=== PATIENT | male | born 1965 | race Caucasian/White ===

== ENCOUNTER 2017-02-14 13:15 | Observation (INO) | payer BC ==
--- NOTE | 2017-02-14 13:51 | RADIOLOGY REPORT (SQ) ---
EXAM DESCRIPTION: CHEST PA/LAT COMPLETED DATE/TIME: 02/14/2017 1:40 pm REASON FOR STUDY: rule out pneumonia COMPARISON: None. EXAM PARAMETERS: NUMBER OF VIEWS: two views TECHNIQUE: Digital Frontal and Lateral radiographic views of the chest acquired. RADIATION DOSE: NA LIMITATIONS: none FINDINGS: LUNGS AND PLEURA: Patchy opacification is present in the upper and lower lung mcintosh on th e right. The left lung is clear. There is no pleural effusion. MEDIASTINUM AND HILAR STRUCTURES: No masses or contour abnormalities. HEART AND VASCULAR STRUCTURES: Heart normal size. No evidence for failure. BONES: No acute findings. HARDWARE: None in the chest. OTHER: No other significant finding. IMPRESSION: Multicentric pneumonia is suggested on the right. No dense consolidation is present. TECHNICAL DOCUMENTATION: JOB ID: [id number] [employer]- All Rights Reserved
--- NOTE | 2017-02-14 14:01 | ER Document Report ---
ED Respiratory Problem - General Chief Complaint: Shortness Of Breath Stated Complaint: DIFFICULTY BREATHING Time Seen by Provider: 02/14/17 13:56 Notes: Patient is here because he is having difficulty breathing and congestion. He began to get ill Tuesday primarily with a cough productive of green colored sputum. Denies any blood production. He tried treating himself with over-the- counter medications over the weekend without success. He went to [facility] this morning where his oxygen level was noted to be 89-90% on room air. They gave the patient 125 mg of Solu-Medrol IM, Rocephin 1 g IM, and Tylenol because he was febrile and called EMS to transport him here. Patient says he has a history of asthma, having been diagnosed about 7 months ago. He has an albuterol inhaler to use as needed. He has never been told he has COPD. Was a smoker but stopped some years ago. No history of heart disease. TRAVEL OUTSIDE OF THE [place] IN LAST 30 DAYS: No - Related Data Allergies/Adverse Reactions: No Known Allergies Allergy (Unverified 08/16/14 10:46) Past Medical History - Social History Smoking Status: Former Smoker Cigarette use (# per day): No Family History: Reviewed & Not Pertinent - Past Medical History Cardiac Medical History: Denies: Hx Coronary Artery Disease, Hx Heart Attack, Hx Hypertension Pulmonary Medical History: Reports: Hx Asthma Denies: Hx Bronchitis, Hx COPD, Hx Pneumonia Endocrine Medical History: Denies: Hx Diabetes Mellitus Type 1, Hx Diabetes Mellitus Type 2 Musculoskeltal Medical History: Reports Hx Arthritis, Reports Hx Gout - Immunizations Hx Diphtheria, Pertussis, Tetanus Vaccination: Yes Review of Systems - Review of Systems Notes: REVIEW OF SYSTEMS: CONSTITUTIONAL : Denies fever. EENT: Denies eye, ear, nose or mouth or throat pain or other symptoms. CARDIOVASCULAR: Denies chest pain. RESPIRATORY: See HPI. GASTROINTESTINAL: Denies abdominal pain or nausea, vomiting, or diarrhea. GENITOURINARY: Denies difficulty or painful urinating, urinary frequency, blood in urine. MUSCULOSKELETAL: Denies back or neck pain. Denies joint pain or swelling. SKIN: Denies rash or skin lesions. NEUROLOGICAL: Denies LOC or altered mental status. Denies headache. Denies sensory loss or motor deficits. ALL OTHER SYSTEMS REVIEWED AND NEGATIVE. Physical Exam - Vital signs Vitals: Pulse Ox 93 02/14/17 13:23 Interpretation: Hypoxic - O2 sat 93% on 3 L, drops below 90% on room air - Notes Notes: PHYSICAL EXAMINATION: GENERAL: Well-appearing, in no acute distress. On O2 at 3 L by nasal cannula. O2 sat 97% HEAD: Atraumatic, normocephalic. EYES: Pupils equal round and reactive to light, extraocular movements intact. ENT: oropharynx clear without exudates. Moist mucous membranes. NECK: Normal range of motion, supple. LUNGS: Decreased breath sounds bilaterally. A few fine expiratory wheezes are heard. HEART: Regular rate and rhythm without murmurs. ABDOMEN: Soft, nontender. No guarding or rebound. BACK: No tenderness throughout entire back. EXTREMITIES: Normal range of motion without pain. No edema. Negative Homans bilaterally. NEUROLOGICAL: Normal speech, normal gait. Normal sensory, motor, and reflex exams. Awake, alert, and oriented x3. Cranial nerves normal. SKIN: Warm, dry, no rashes. Course - Re-evaluation Re-evalutation: 02/14/17 14:35 Discussed case with hospitalist who will admit the patient. - Vital Signs Vital signs: Temp Pulse Resp BP Pulse Ox 16 138/91 H 92 02/14/17 13:31 02/14/17 13:31 02/14/17 13:31 02/14/17 14:04 - Laboratory Result Diagrams: 02/14/17 13:50 02/14/17 13:50 - Diagnostic Test Radiology results interpreted by me: 02/14/17 14:34 Chest x-ray shows pneumonia in the right middle and right lower lung. - EKG Interpretation by Ny EKG shows normal: Sinus rhythm Rate: Normal Rhythm: NSR Additional EKG results interpreted by hi: 02/14/17 14:37 EKG without any acute changes. Discharge - Discharge Clinical Impression: Pneumonia Qualifiers: Pneumonia type: due to unspecified organism Laterality: right Lung location: lower lobe of lung Qualified Code(s): J18.1 - Lobar pneumonia, unspecified organism Admitting Provider: Hospitalist Unit Admitted: Medical Floor
[2017-02-14 14:08] LABS: VENOUS BLOOD BASE EXCESS 1.4 mmol/L; VENOUS BLOOD HCO3 27.4 mmol/L (20-32); VENOUS BLOOD PCO2 47.8 mmHg (35-63); VENOUS BLOOD PH 7.38 (7.30-7.42)
[2017-02-14 14:11] LABS: HEMATOCRIT 46.6 % (37.9-51.0); HEMOGLOBIN 16.1 g/dL (13.5-17.0); HGB HCT DIFFERENCE 1.7; MEAN CORPUSCULAR HEMOGLOBIN 32.2 pg (27.0-33.4); MEAN CORPUSCULAR HGB CONC 34.6 g/dL (32.0-36.0); MEAN CORPUSCULAR VOLUME 93 fl (80-97); RED BLOOD COUNT 5.01 10^6/uL (4.35-5.55); RED CELL DISTRIBUTION WIDTH 14.1 % (11.5-14.0); WHITE BLOOD COUNT 7.8 10^3/uL (4.0-10.5)
[2017-02-14] MEDS ORDERED: CEFTRIAXONE 1 GM/D5W RTU 50 ML IV ONE (14:11)
[2017-02-14 14:16] LABS: PROTHROMBIN TIME 13.5 SEC (11.4-15.4)
[2017-02-14 14:43] LABS: BAND NEUTROPHILS % (MANUAL) 6 % (3-5); BASOPHILS % (MANUAL) 0 % (0-2); EOSINOPHILS % (MANUAL) 0 % (0-6); LYMPHOCYTES % (MANUAL) 10 % (13-45); RBC MORPHOLOGY COMMENT NORMO-CYTIC/CHROMIC; TOTAL CELLS COUNTED 100
[2017-02-14] MEDS ORDERED: ACETAMINOPHEN 325 MG TABLET PO PRN (15:00)
[2017-02-14] MEDS ORDERED: ONDANSETRON 4 MG TAB.RAPDIS PO PRN (15:00)
[2017-02-14] MEDS ORDERED: ONDANSETRON HCL INJ/PF 4 MG/2 ML SDV IV PRN (15:00)
[2017-02-14 15:03] LABS: ANION GAP 12 (5-19); CARBON DIOXIDE 28 mmol/L (22-30); CHLORIDE 97 mmol/L (98-107); GLUCOSE 152 mg/dL (75-110); POTASSIUM 4.4 mmol/L (3.6-5.0); SODIUM 137.4 mmol/L (137-145); TOTAL PROTEIN 7.2 g/dL (6.3-8.2)
[2017-02-14 15:04] LABS: ALANINE AMINOTRANSFERASE 63 U/L (21-72); ALKALINE PHOSPHATASE 93 U/L (38-126); ASPARTATE AMINO TRANSFERASE 45 U/L (17-59); BILIRUBIN,DIRECT 0.4 mg/dL (0.0-0.4); BLOOD UREA NITROGEN 13 mg/dL (7-20); CALCIUM 8.9 mg/dL (8.4-10.2); CREATININE RESULT 1.02 mg/dL (0.52-1.25)
[2017-02-14 15:18] LABS: APPEARANCE,URINE CLEAR; BILIRUBIN,URINE NEGATIVE (NEGATIVE); GLUCOSE, URINE NEGATIVE (NEGATIVE); KETONES,URINE NEGATIVE (NEGATIVE); LEUKOCYTE ESTERASE,URINE TRACE (NEGATIVE); NITRITE,URINE NEGATIVE (NEGATIVE); PROTEIN,URINE NEGATIVE (NEGATIVE); URINE SPECIFIC GRAVITY 1.016; UROBILINOGEN,URINE NEGATIVE mg/dL (<2.0)
--- NOTE | 2017-02-14 15:26 | PDOC H&P ---
History of Present Illness Admission Date/PCP: 02/14/17 14:48 Patient complains of: Cough and shortness of breath History of Present Illness: KEVAN DOMINGO is a 52 year old male who presents with a 3 day history of productive cough along with fevers to 100.4. Patient reports that he has had worsening shortness of breath also. He denies any chest pain. He was seen in his primary care doctor today and sent to the emergency room because he was noted to have an oxygen level of 90% on room air. The patient denies any recent travel. He denies any prolonged sitting. Patient denies having any orthopnea or PND. He reports that his shortness of breath has been mild. He denies any travel outside of [facility]. He can walk his usual distance but becomes winded more easily. Past Medical History Cardiac Medical History: Denies: Coronary Artery Disease, Myocardial Infarction, Hypertension Pulmonary Medical History: Reports: Asthma Denies: Bronchitis, Chronic Obstructive Pulmonary Disease (COPD), Pneumonia EENT Medical History: Reports: None Neurological Medical History: Denies: Seizures Endocrine Medical History: Denies: Diabetes Mellitus Type 1, Diabetes Mellitus Type 2 Renal/ Medical History: Reports: None Malignancy Medical History: Reports: None Musculoskeltal Medical History: Reports: Arthritis, Gout Skin Medical History: Reports: None Psychiatric Medical History: Reports: None Hematology: Reports: None Denies: Anemia Infectious Medical History: Reports: None Past Surgical History Past Surgical History: Reports: Orthopedic Surgery - right knee, Other - Laser treatment of nephrolithiasis Social History Information Source: Patient Lives with: Family Smoking Status: Former Smoker Frequency of Alcohol Use: Occasional Hx Recreational Drug Use: No Drugs: None Hx Prescription Drug Abuse: No - Advance Directive Resuscitation Status: Full Code Family History Family History: Father is alive and 72 years old. He has COPD. Mother is alive and 73. She has a neuroendocrine cancer Parental Family History Reviewed: Yes Children Family History Reviewed: No Sibling(s) Family History Reviewed.: No Medication/Allergy Home Medications: Albuterol Sulfate [Proair HFA] 2 puff IH Q4 PRN 02/14/17 Allopurinol [Zyloprim 300 mg Tablet] 300 mg PO DAILY 02/14/17 Colchicine [Colcrys 0.6 mg Tablet] 0.6 mg PO DAILY 02/14/17 Naproxen [Naprosyn 250 mg Tablet] 250 mg PO DAILY PRN 02/14/17 Allergies/Adverse Reactions: No Known Allergies Allergy (Unverified 08/16/14 10:46) Review of Systems Constitutional: PRESENT: fever(s). ABSENT: chills, headache(s), weight gain, weight loss Eyes: ABSENT: visual disturbances Ears: ABSENT: hearing changes Cardiovascular: PRESENT: dyspnea on exertion. ABSENT: chest pain, edema, orthropnea, palpitations Respiratory: PRESENT: cough, dyspnea, sputum. ABSENT: hemoptysis Gastrointestinal: ABSENT: abdominal pain, constipation, diarrhea, hematemesis, hematochezia, nausea, vomiting Genitourinary: ABSENT: dysuria, hematuria Musculoskeletal: ABSENT: joint swelling Integumentary: ABSENT: rash, wounds Neurological: ABSENT: abnormal gait, abnormal speech, confusion, dizziness, focal weakness, syncope Psychiatric: ABSENT: anxiety, depression Endocrine: ABSENT: cold intolerance, heat intolerance, polydipsia, polyuria Hematologic/Lymphatic: ABSENT: easy bleeding, easy bruising Physical Exam Vital Signs: Temp Pulse Resp BP Pulse Ox 98.1 F 20 145/81 H 94 02/14/17 15:16 02/14/17 15:01 02/14/17 15:01 02/14/17 15:01 General appearance: PRESENT: no acute distress Head exam: PRESENT: atraumatic, normocephalic Eye exam: PRESENT: conjunctiva pink, EOMI, PERRLA. ABSENT: scleral icterus Ear exam: PRESENT: normal external ear exam Mouth exam: PRESENT: moist, tongue midline Neck exam: ABSENT: carotid bruit, JVD, lymphadenopathy, thyromegaly Respiratory exam: PRESENT: rhonchi - Coarse rhonchi bilaterally.. ABSENT: rales , wheezes Cardiovascular exam: PRESENT: RRR. ABSENT: diastolic murmur, rubs, systolic murmur Pulses: PRESENT: normal dorsalis pedis pul GI/Abdominal exam: PRESENT: normal bowel sounds, soft. ABSENT: distended, guarding, mass, organolmegaly, rebound, tenderness Rectal exam: PRESENT: deferred Extremities exam: ABSENT: calf tenderness, clubbing, pedal edema Neurological exam: PRESENT: alert, awake, oriented to person, oriented to place , oriented to time, oriented to situation, CN II-XII grossly intact. ABSENT: motor sensory deficit Psychiatric exam: PRESENT: appropriate affect Skin exam: PRESENT: dry, intact, warm. ABSENT: cyanosis, rash Results Laboratory Results: 02/14/17 15:01 Urine Color YELLOW Urine Appearance CLEAR Urine pH 5.0 Ur Specific [place] 1.016 Urine Protein NEGATIVE Urine Glucose (UA) NEGATIVE Urine Ketones NEGATIVE Urine Blood SMALL H Urine Nitrite NEGATIVE Ur Leukocyte Esterase TRACE H Urine WBC (Auto) 3 Urine RBC (Auto) 11 Impressions: Chest X-Ray 02/14/17 13:29 IMPRESSION: Multicentric pneumonia is suggested on the right. No dense consolidation is present. Assessment & Plan - Diagnosis (1) Pneumonia Qualifiers: Pneumonia type: due to unspecified organism Laterality: right Lung location: lower lobe of lung Qualified Code(s): J18.1 - Lobar pneumonia, unspecified organism Is this a current diagnosis for this admission?: YesPlan: The patient appears to have community-acquired pneumonia. He is quite hypoxic. We will give nebulizers, Rocephin and Zithromax. He does have history of asthma but does not have much wheezing. Will hold off on starting any steroids at this time. The patient will be made as an observation admission as I anticipate he will improve overnight and should be able to go home (2) Asthma Is this a current diagnosis for this admission?: YesPlan: Give albuterol nebs. Will hold off on giving steroids at this time. (3) Gout Is this a current diagnosis for this admission?: YesPlan: Continue with colchicine and allopurinol. - Time Time Spent: 50 to 70 Minutes - Inpatient Certification Medical Necessity: Need for IV Antibiotics
[2017-02-14] MEDS: IPRATROPIUM/ALBUTEROL 0.5-2.5 MG/3 ML AMPUL NEB SCH ×2 (16:09→21:31)
[2017-02-14] MEDS: NORMAL SALINE 1000 ML 1,000 ML IV PRN (17:41)
[2017-02-14] MEDS ORDERED: AZITHROMYCIN 500 MG in DEXTROSE 5%-WATER 250 ML IV SCH (18:00)
[2017-02-15] MEDS: IPRATROPIUM/ALBUTEROL 0.5-2.5 MG/3 ML AMPUL NEB SCH ×4 (00:28→11:36)
[2017-02-15] MEDS: NORMAL SALINE 1000 ML 1,000 ML IV PRN ×2 (02:45→11:26)
[2017-02-15 06:06] LABS: ABSOLUTE LYMPHOCYTES (AUTO) 0.7 10^3/uL (0.5-4.7); ABSOLUTE MONOCYTES (AUTO) 1.2 10^3/uL (0.1-1.4); ABSOLUTE NEUT (AUTO) 6.1 10^3/uL (1.7-8.2); BASOPHILS % (AUTO) 0.1 % (0-2); HEMATOCRIT 45.2 % (37.9-51.0); HEMOGLOBIN 15.4 g/dL (13.5-17.0); LYMPHOCYTES % (AUTO) 8.4 % (13-45); MEAN CORPUSCULAR HEMOGLOBIN 31.9 pg (27.0-33.4); MEAN CORPUSCULAR HGB CONC 34.1 g/dL (32.0-36.0); MEAN CORPUSCULAR VOLUME 94 fl (80-97); MONOCYTES % (AUTO) 15.3 % (3-13); RED BLOOD COUNT 4.83 10^6/uL (4.35-5.55); RED CELL DISTRIBUTION WIDTH 13.9 % (11.5-14.0); SEGMENTED NEUTROPHILS % (AUTO) 76.2 % (42-78)
[2017-02-15 06:25] LABS: ANION GAP 12 (5-19); BLOOD UREA NITROGEN 17 mg/dL (7-20); CALCIUM 9.3 mg/dL (8.4-10.2); CARBON DIOXIDE 25 mmol/L (22-30); CHLORIDE 101 mmol/L (98-107); CREATININE RESULT 0.94 mg/dL (0.52-1.25); GLUCOSE 220 mg/dL (75-110); SODIUM 137.8 mmol/L (137-145)
--- NOTE | 2017-02-15 08:50 | Physician Advisory Note ---
Physician Advisor ProgressNote .: [facility] the medical record for this patient. Physician Advisor Statement: 1. Nicely documented CAP - but please document most likely organism (Gram Pos?) . 2. "Obesity w/BMI 45" Status: Approp'ly brought in as Outpt Obs. VS have overall improved w/approp tx. - If, however, attending finds pt not yet sufficiently improved for d/c to be safe today, please document reasons & continued concerns, and may consider change to Inpt at that point. Thanks! CK
[2017-02-15] MEDS ORDERED: COLCHICINE 0.6 MG TABLET PO SCH (10:00)
[2017-02-15] MEDS ORDERED: CEFTRIAXONE 1 GM/D5W RTU 50 ML IV SCH (10:00)
[2017-02-15] MEDS ORDERED: ALLOPURINOL 300 MG TABLET PO SCH (10:00)
--- NOTE | 2017-02-15 12:52 | EKG REPORT ---
SEVERITY:- NORMAL ECG - SINUS RHYTHM : Confirmed by: Kendra Dove MD 15-Feb-2017 12:51:20
--- NOTE | 2017-02-15 14:37 | PDOC DISCHARGE SUMMARY ---
General - Admit/Disc Date/PCP Admission Date/Primary Care Provider: 02/14/17 15:00 Discharge Date: 02/15/17 - Discharge Diagnosis (1) Pneumonia Is this a current diagnosis for this admission?: Yes (2) Asthma Is this a current diagnosis for this admission?: Yes (3) Gout Is this a current diagnosis for this admission?: Yes - Additional Information Resuscitation Status: Full Code Discharge Diet: Regular Discharge Activity: Activity As Tolerated, Balance Activity w/Rest, Slowly Increase Activity Home Medications: Albuterol Sulfate [Proair HFA] 2 puff IH Q4 PRN 02/14/17 Allopurinol [Zyloprim 300 mg Tablet] 300 mg PO DAILY 02/14/17 Colchicine [Colcrys 0.6 mg Tablet] 0.6 mg PO DAILY 02/14/17 Naproxen [Naprosyn 250 mg Tablet] 250 mg PO DAILY PRN 02/14/17 Ipratropium/Albuterol Sulfate [Duoneb 3 ml Ampul] 3 ml NEB RTQ4 PRN #60 vial.neb 02/15/17 Levofloxacin [Levaquin 750 mg Tablet] 750 mg PO DAILY #10 tab 02/15/17 Methylprednisolone [Medrol Dosepack (4 mg/Tab) 21 Tab/Dosepak] 4 mg PO ASDIR PRN #21 tab.ds.pk 02/15/17 Additional Information: Return to the emergency room if symptoms recur or worsens. History of Present Illness Patient complains of: Cough and shortness of breath History of Present Illness: KEVAN DOMINGO is a 52 year old male who presents with a 3 day history of productive cough along with fevers to 100.4. Patient reports that he has had worsening shortness of breath also. He denies any chest pain. He was seen in his primary care doctor today and sent to the emergency room because he was noted to have an oxygen level of 90% on room air. The patient denies any recent travel. He denies any prolonged sitting. Patient denies having any orthopnea or PND. He reports that his shortness of breath has been mild. He denies any travel outside of [facility]. He can walk his usual distance but becomes winded more easily. Hospital Course Hospital Course: The patient was admitted to telemetry. The patient was started on intravenous antibiotics as well as bronchodilators as needed, antipyretics. IV fluids was likewise started. The following morning the patient's symptomatology is significantly improved, was able to ambulate around without very oxygen and hypoxemia reported. Patient opted to continue treatment on an outpatient basis. The rest of the hospital stays unremarkable. He was advised to follow- up final results of cultures on an outpatient basis with his primary care physician. Physical Exam Vital Signs: Temp Pulse Resp BP Pulse Ox 97.9 F 102 H 18 144/70 H 94 02/15/17 12:00 02/15/17 12:00 02/15/17 12:00 02/15/17 12:00 02/15/17 12:00 Intake & Output 02/14/17 02/15/17 02/16/17 06:59 06:59 06:59 Intake Total 2187 1295 Balance 2187 1295 Weight 151.3 kg General appearance: PRESENT: no acute distress, cooperative, obese Head exam: PRESENT: normocephalic Eye exam: PRESENT: EOMI Mouth exam: PRESENT: moist, neck supple Neck exam: ABSENT: JVD Respiratory exam: PRESENT: clear to auscultation onelia - Anteriorly bilateral, rhonchi - minimal posteriorly Cardiovascular exam: PRESENT: RRR. ABSENT: gallop GI/Abdominal exam: PRESENT: normal bowel sounds, soft. ABSENT: distended, tenderness Extremities exam: ABSENT: pedal edema Neurological exam: PRESENT: alert, awake, oriented to person, oriented to place , oriented to time, oriented to situation Skin exam: PRESENT: dry, warm. ABSENT: cyanosis Results Laboratory Results: 02/15/17 05:45 02/15/17 05:45 02/14/17 02/15/17 02/15/17 15:01 05:45 05:45 WBC 8.0 RBC 4.83 Hgb 15.4 Hct 45.2 MCV 94 MCH 31.9 MCHC 34.1 RDW 13.9 Plt Count 209 Seg Neutrophils % 76.2 Lymphocytes % 8.4 L Monocytes % 15.3 H Eosinophils % 0.0 Basophils % 0.1 Absolute Neutrophils 6.1 Absolute Lymphocytes 0.7 Absolute Monocytes 1.2 Absolute Eosinophils 0.0 Absolute Basophils 0.0 Sodium 137.8 Potassium 5.0 Chloride 101 Carbon Dioxide 25 Anion Gap 12 BUN 17 Creatinine 0.94 Est GFR ( Amer) > 60 Est GFR (Non-Af Amer) > 60 Glucose 220 H Calcium 9.3 Urine Color YELLOW Urine Appearance CLEAR Urine pH 5.0 Ur Specific [place] 1.016 Urine Protein NEGATIVE Urine Glucose (UA) NEGATIVE Urine Ketones NEGATIVE Urine Blood SMALL H Urine Nitrite NEGATIVE Ur Leukocyte Esterase TRACE H Urine WBC (Auto) 3 Urine RBC (Auto) 11 Impressions: Chest X-Ray 02/14/17 13:29 IMPRESSION: Multicentric pneumonia is suggested on the right. No dense consolidation is present. Qualifiers PATEINT BEING DISCHARGED WITH ANY OF THE FOLLOWING DIAGNOSIS?: No Plan Discharge Plan: Follow-up with primary care physician in 1 week. Time Spent: Less than 30 Minutes
[2017-02-15 15:00] VITALS: BP 133/81
== END 2017-02-15 16:26 | disposition home or self-care (01) ==
LOC: ER 13:15 → EH 14:48 → UNDOADMIN 14:48 → INTOOBSV 15:00 → EH 15:00 → 3S 16:21
PROVIDERS: ADMIT Internal Medicine; ATTEND Internal Medicine
PROC: 3E0F7GC Introduction of Other Therapeutic Substance into Respiratory Tract, Via Natural or Artificial Opening (ICD-10-PCS; principal; 2017-02-14)
DX: J18.1 Lobar pneumonia, unspecified organism (principal); J45.909 Unspecified asthma, uncomplicated; M10.9 Gout, unspecified; R09.02 Hypoxemia; M19.90 Unspecified osteoarthritis, unspecified site; Z79.899 Other long term (current) drug therapy; Z87.891 Personal history of nicotine dependence; Z82.5 Family history of asthma and other chronic lower respiratory diseases
CPT/HCPCS: 93005; 99285; 96365; 36415 ×2; 87040; 87086; 85025 ×2; 85610; 80048; 80053; 81001; 82803; 83605; 71020; 93010; 94640 ×2; J7060; J7030 ×2; J0456; J0696 ×2; J7620 ×2; G0378

== ENCOUNTER 2020-07-15 01:59 | Emergency (ER) | payer BC, OTHER ==
--- NOTE | 2020-07-15 02:38 | ER Document Report ---
ED General - General Chief Complaint: Low Back Pain Stated Complaint: LOWER BACK PAIN Time Seen by Provider: 07/15/20 02:37 TRAVEL OUTSIDE OF THE [place] IN LAST 30 DAYS: No - Related Data Allergies/Adverse Reactions: No Known Allergies Allergy (Unverified 08/16/14 10:46) Past Medical History - Social History Smoking Status: Current Some Day Smoker Chew tobacco use (# tins/day): No Frequency of alcohol use: Occasional Drug Abuse: None Family History: Reviewed & Not Pertinent - Past Medical History Cardiac Medical History: Reports: Hx Hypercholesterolemia, Hx Hypertension Denies: Hx Coronary Artery Disease, Hx Heart Attack Pulmonary Medical History: Reports: Hx Asthma Denies: Hx Bronchitis, Hx COPD, Hx Pneumonia Neurological Medical History: Denies: Hx Seizures Endocrine Medical History: Denies: Hx Diabetes Mellitus Type 1, Hx Diabetes Mellitus Type 2 Renal/ Medical History: Reports: Hx Kidney Stones Musculoskeletal Medical History: Reports Hx Arthritis, Reports Hx Gout Past Surgical History: Reports: Hx Orthopedic Surgery - right knee, Other - Laser treatment of nephrolithiasis - Immunizations Hx Diphtheria, Pertussis, Tetanus Vaccination: Yes Physical Exam - Vital signs Vitals: Temp 98.4 F 07/15/20 02:00 Course - Vital Signs Vital signs: Temp Pulse Resp BP Pulse Ox 98.4 F 07/15/20 02:00
[2020-07-15] MEDS ORDERED: MORPHINE SULFATE 10 MG/ML INJ IM ONE (02:45)
[2020-07-15] MEDS ORDERED: KETOROLAC TROMETHAMINE 60 MG/2 ML SDV IM ONE (02:46)
--- NOTE | 2020-07-15 02:48 | ER Document Report ---
ED General - General Chief Complaint: Low Back Pain Stated Complaint: LOWER BACK PAIN Time Seen by Provider: 07/15/20 02:37 Primary Care Provider: [facility] [Provider Group] - Follow up in 3-5 days JESSA BARON PA-C [Primary Care Provider] - 07/21/20 Notes: Patient is a 55-year-old male who presents to the emergency department with a chief complaint of back pain. Patient states that she is here to get review with seen at [facility] and was placed on steroids and Flexeril and prednisone to help with his back pain. States that the pain starts in his mid back to left hip area and radiates down his left leg. States that he went and sat down on his bed and when he went to go get back up, he felt a "pop and a ripple" and then he was not able to move. He was brought in via EMS. Patient states that he was feeling better with the Flexeril and prednisone, but when he felt the "pop and Ripple," his pain got worse. States that last night he felt some "dribbling" when it came to urine, which he has never had before. Denies bowel incontinence. He denies any history of cancer. TRAVEL OUTSIDE OF THE [place] IN LAST 30 DAYS: No - Related Data Allergies/Adverse Reactions: No Known Allergies Allergy (Unverified 08/16/14 10:46) Past Medical History - General Information source: Patient - Social History Smoking Status: Current Some Day Smoker Chew tobacco use (# tins/day): No Frequency of alcohol use: Occasional Drug Abuse: None Family History: Reviewed & Not Pertinent - Past Medical History Cardiac Medical History: Reports: Hx Hypercholesterolemia, Hx Hypertension Denies: Hx Coronary Artery Disease, Hx Heart Attack Pulmonary Medical History: Reports: Hx Asthma Denies: Hx Bronchitis, Hx COPD, Hx Pneumonia Neurological Medical History: Denies: Hx Seizures Endocrine Medical History: Denies: Hx Diabetes Mellitus Type 1, Hx Diabetes Mellitus Type 2 Renal/ Medical History: Reports: Hx Kidney Stones Musculoskeletal Medical History: Reports Hx Arthritis, Reports Hx Gout Past Surgical History: Reports: Hx Orthopedic Surgery - right knee, Other - Laser treatment of nephrolithiasis - Immunizations Hx Diphtheria, Pertussis, Tetanus Vaccination: Yes Review of Systems - Review of Systems Notes: REVIEW OF SYSTEMS: CONSTITUTIONAL : Denies recent illness. Denies recent unintentional weight loss. Denies fever, chills, or sweats. EENT: Denies eye, ear, throat, or mouth pain, discharge, or symptoms. Denies nasal or sinus congestion. CARDIOVASCULAR: Denies chest pain. RESPIRATORY: Denies shortness of breath, cough, congestion, difficulty breathing, or wheezing. GASTROINTESTINAL: Denies nausea, vomiting, and diarrhea. Denies abdominal pain. Denies constipation. GENITOURINARY: See HPI. MUSCULOSKELETAL: See HPI. SKIN: Denies rash, itchiness, or lesions HEMATOLOGIC : Denies easy bruising or bleeding. LYMPHATIC: Denies swollen, painful, enlarged glands. NEUROLOGICAL: Denies no numbness or tingling denies weakness. Denies headache. Denies altered mental status. Denies alteration in speech. PSYCHIATRIC: Denies stress, anxiety, alteration in sleep patterns, or depression. All other systems reviewed and negative. Physical Exam - Vital signs Vitals: Temp 98.4 F 07/15/20 02:00 - Notes Notes: PHYSICAL EXAMINATION: GENERAL: Appears well, healthy, well-nourished, no acute distress. HEAD: Normocephalic, atraumatic. EYES: PERRL, conjunctiva normal, all extraocular movements intact, sclera nonicteric ENT: Moist mucous membranes. NECK: Supple, no noticeable swelling, redness, rash. Normal range of motion. LUNGS: Equal breath sounds bilaterally and clear to auscultation. No wheezes rales or rhonchi. CARDIOVASCULAR: S1-S2, regular rate, regular rhythm. Radial pulses 2+, normal. ABDOMEN: Normoactive bowel sounds. Soft, nontender, no guarding, no rebound tenderness, and no masses palpated. EXTREMITIES: Normal strength and range of motion, no pitting or edema. No cyanosis. NEUROLOGICAL: Moves all extremities upon command. Strength 5/5 in all extremities. PSYCH: Normal mood, normal affect. SKIN: Warm, dry. No rash, lesions, ulcerations noted. Normal skin turgor. Course - Re-evaluation Re-evalutation: 07/15/20 02:49 We will give the patient a dose of morphine and Toradol and then will reassess. 07/15/20 05:40 Patient reports that the numbness that he had prior to getting the pain medicine has gone away. States that he does still have some pain, but it is tolerable. Patient was able to stand. Discussed this case with Dr. Freed, my attending. Patient will void and we will get a post void residual. 07/15/20 06:23 Postvoid residual was less than 100. At this time, I feel safe to send the patient home. He will follow-up with his primary care provider. Patient will also follow-up with his orthopedic. Follow-up precautions were given. Verbal discharge instructions were given to the patient. They verbalized understanding. They are stable for discharge. - Vital Signs Vital signs: Temp Pulse Resp BP Pulse Ox 97.9 F 75 20 160/92 H 96 07/15/20 06:58 07/15/20 06:58 07/15/20 06:58 07/15/20 06:58 07/15/20 06:58 - Laboratory Results Critical Laboratory Results Reviewed: No Critical Results - Radiology Results Critical Radiology Results Reviewed: No Critical Results Discharge - Discharge Clinical Impression: Back pain Qualifiers: Back pain location: low back pain Chronicity: acute Back pain laterality: left Sciatica presence: with sciatica Sciatica laterality: sciatica of left side Qualified Code(s): M54.42 - Lumbago with sciatica, left side Sciatica Qualifiers: Laterality: left Qualified Code(s): M54.32 - Sciatica, left side Condition: Stable Disposition: HOME, SELF-CARE Additional Instructions: You were seen today in the emergency department for back pain that radiates down your left leg. Your x-ray shows that you have degenerative changes with bone spurs in your back. You are being sent home with a prescription for Hopkins, which is a pain medicine. You can take this as needed. If you take Hopkins, do not take Flexeril with it. Continue your steroids as prescribed. Follow-up with your primary care provider. Also follow-up with [facility] for surgery for evaluation of your back. You can also follow-up with your orthopedic doctors. Prescriptions: Hydrocodone/Acetaminophen [Hopkins 5-325 mg Tablet] 1 tab PO ASDIR PRN #12 tablet PRN Reason: Forms: Return to Work Referrals: JESSA BARON PA-C [Primary Care Provider] - 07/21/20 [facility] [Provider Group] - Follow up in 3-5 days
--- NOTE | 2020-07-15 04:15 | RADIOLOGY REPORT (SQ) ---
EXAM DESCRIPTION: XR LUMBAR SPINE ANTEROPOSTERIOR, LATERAL, AND OBLIQUES COMPLETED DATE/TME: 07/15/2020 03:34 CLINICAL HISTORY: 55 years, Male, "pop" in back; back pain COMPARISON: None. NUMBER OF VIEWS: 5 TECHNIQUE: 5 view lumbar spine LIMITATIONS: None. FINDINGS: 5 lumbar type vertebral bodies. Height and alignment is preserved. There are no pars defects. Endplate degenerative changes throughout the lumbar spine with disc space narrowing, osteophytic spurring and facet arthropathy. Findings are most pronounced at the L4-5 and L5-S1 levels. IMPRESSION: Multilevel degenerative change, as above copyright 2010 [employer]- All Rights Reserved
[2020-07-15] MEDS ORDERED: HYDROCODONE/ACETAMINOPHEN 5-325 MG TABLET PO ONE (06:34)
[2020-07-15 06:59] VITALS: BP 160/92
== END 2020-07-15 07:16 | disposition home or self-care (01) ==
LOC: ER 01:59
DX: M54.42 Lumbago with sciatica, left side (principal); F17.200 Nicotine dependence, unspecified, uncomplicated; E78.00 Pure hypercholesterolemia, unspecified; I10 Essential (primary) hypertension; Z87.442 Personal history of urinary calculi
CPT/HCPCS: 99284; 96372; 72110; J1885; J2270